=== PATIENT | male | born 2005 | race Two or more races ===

== ENCOUNTER 2024-10-28 23:54 | Inpatient (IN) | payer OTHER ==
[~2024-10-28] VITALS: Ht 175.3 cm; Wt 72.7 kg
--- NOTE | 2024-10-29 00:23 | ED.PDOC ---
History of Present Illness HPI Comments 19-year-old male came to ER for vomiting blood. Patient states he has been having throat pain for a week, associated with nausea and vomiting today. Patient states he vomited approximately 1 cup of dark red blood mixed with vomit . Denies any changes in bowel habits or black/bloody stool. He denies fever, sick contacts or urinary symptoms. Chief Complaint: Throat pain Time Seen by MD: 00:23 Reviewed Notes: Nurses Notes Allergies: Coded Allergies: No Known Drug Allergy (Verified Allergy, Unknown, 10/29/24) Information Source: Patient Mode of Arrival: Ambulatory Severity: Moderate Timing: Hours Duration: Intermittent Past Medical History PAST MEDICAL HISTORY: Denies Surgical History: Denies all surgeries Family History Family History: Reviewed,noncontributory to illness Social History Smoker: Non-Smoker Alcohol: Denies ETOH Use Drugs: Denies Drug Use Lives In: Home Constitutional: denies: chills, diaphoresis, fatigue, fever, malaise, sweats, weakness, others EENTM: reports: throat pain; denies: blurred vision, double vision, ear bleeding, ear discharge, ear drainage, ear pain, ear ringing, eye pain, eye redness, hearing loss, mouth pain, mouth swelling, nasal discharge, nose bleeding, nose congestion, nose pain, photophobia, tearing, throat swelling, voice changes, others Respiratory: denies: cough, hemoptysis, orthopnea, SOB at rest, shortness of breath, SOB with excertion, stridor, wheezing, others Cardiovascular: denies: chest pain, dizzy spells, diaphoresis, Dyspnea on exertion, edema, irregular heart beat, left arm pain, lightheadedness, palpitations, PND, syncope, others Gastrointestinal: reports: abdominal pain, hematemesis; denies: abdomen distended, blood streaked bowels, constipated, diarrhea, dysphagia, difficulty swallowing, melena, nausea, poor appetite, poor fluid intake, rectal bleeding, rectal pain, vomiting, others Genitourinary: denies: burning, dysuria, flank pain, frequency, hematuria, incontinence, penile discharge, penile sore, pain, testicle pain, testicle swelling, urgency, others Neurological: denies: dizziness, fainting, headache, left sided numbness, left sided weakness, numbness, paresthesia, pre-existing deficit, right sided numbness, right sided weakness, seizure, speech problems, tingling, tremors, weakness, others Musculoskeletal: reports: back pain; denies: gout, joint pain, joint swelling, muscle pain, muscle stiffness, neck pain, others Integumetry: denies: bruises, change in color, change in hair/nails, dryness, laceration, lesions, lumps, rash, wounds, others Allergic/Immunocompromised: denies: Difficulty Healing, Frequent Infections, Hives, Itching, others Hematologic/Lymphatic: denies: anemia, blood clots, easy bleeding, easy bruising, swollen glands, others Endocrine: denies: excessive hunger, excessive sweating, excessive thirst, excessive urination, flushing, intolerance to cold, intolerance to heat, unexplained weight gain, unexplained weight loss, others Psychiatric: denies: anxiety, bipolar disorder, depression, hopeless, panic disorder, schizophrenia, sleepless, suicidal, others Physical Exam General Appearance: Mild Distress (Tearful) HEENT: Pharynx Normal, Other (Moist mucous membranes) Neck: Full Range of Motion, Normal Inspection Respiratory: Lungs Clear, No Accessory Muscle Use, No Respiratory Distress, Normal Breath Sounds Cardiovascular: No Edema, No JVD, Regular Rate/Rhythm Breast Exam: Deferred Gastrointestinal: Soft, Tenderness (upper abdominal) Genitalia: Deferred Pelvic: Deferred Rectal: Deferred Extremities: Normal inspection, Normal range of motion, Non-tender, No pedal edema Neurologic: Alert (Oriented x4), Normal Affect, Normal Mood, Other (Ambulatory) Cerebellar Function: NOT DONE Reflexes: NOT DONE Skin: Dry, Normal Color, Warm Lymphatic: NOT DONE Was a procedure done? Was a procedure done?: No Differential Dx Considerations may include: Gastritis, PUD, gastroenteritis, esophageal varices, anemia, coagulopathy, among other X-Ray, Labs, Meds, VS Vital Signs Date Time Temp Pulse Resp B/P (MAP) Pulse Ox O2 Delivery O2 Flow Rate FiO2 10/29/24 00:34 99.2 106 20 142/104 (117) 97 99.2 Lab Test 10/29/24 00:20 10/29/24 00:18 Range/Units Urine Color Yellow Yellow Urine Clarity Clear Clear Urine pH 5.5 5.0-9.0 Urine Specific [place] 1.037 H 1.001-1.035 Urine Protein Trace H Negative Urine Ketones 1+ H Negative Urine Blood Negative Negative /uL Urine Nitrite Negative Negative Urine Bilirubin Negative Negative Urine Urobilinogen 2 H Negative mg/dL Urine Leukocyte Esterase Negative Negative /uL Urine RBC 1 0 - 3 /hpf Urine Microscopic WBC 1 0-3 /HPF Urine Squamous Epithelial Cells None seen <5 /hpf Urine Bacteria None seen None Seen /hpf Urine Mucus Few None Seen Urine Glucose Normal Normal mg/dL White Blood Count 4.9 4.4-10.8 10^3/uL Red Blood Count 5.90 4.5-5.90 10^6/uL Hemoglobin 17.0 13.5-17.5 g/dL Hematocrit 49.1 41.0-53.0 % Mean Corpuscular Volume 83.1 80.0-100.0 fL Mean Corpuscular Hemoglobin 28.8 28.0-32.0 pg Mean Corpuscular Hemoglobin Concent 34.6 32.0-36.0 g/dL Red Cell Distribution Width 13.1 11.8-14.3 % Platelet Count 236 140-450 10^3/uL Mean Platelet Volume 7.9 6.9-10.8 fL Neutrophils (%) (Auto) 71.7 37.0-80.0 % Lymphocytes (%) (Auto) 20.6 10.0-50.0 % Monocytes (%) (Auto) 6.7 0.0-12.0 % Eosinophils (%) (Auto) 0.7 0.0-7.0 % Basophils (%) (Auto) 0.3 0.0-2.0 % Neutrophils # (Auto) 3.5 1.6-8.6 10 ^3/uL Lymphocytes # (Auto) 1.0 0.4-5.4 10 ^3/uL Monocytes # (Auto) 0.3 0-1.3 10 ^3/uL Eosinophils # (Auto) 0 0-0.8 10 ^3/uL Basophils # (Auto) 0 0-0.2 10 ^3/uL Nucleated Red Blood Cells 0.2 % Prothrombin Time 10.9 9.3-11.8 sec Prothrombin Time INR 1.03 0.9-1.15 Activated Partial Thromboplast Time 29.7 24.5-34.5 SEC Sodium Level 143 136-145 mmol/L Potassium Level 4.3 3.5-5.1 mmol/L Chloride Level 108 H 98-107 mmol/L Carbon Dioxide Level 24 20-31 mmol/L Anion Gap 11 5-15 Blood Urea Nitrogen 13 9-23 mg/dL Creatinine 1.12 0.700-1.30 mg/dL Glomerular Filtration Rate Calc 96 >90 mL/min BUN/Creatinine Ratio 11.6 10.0-20.0 Serum Glucose 100 74-106 mg/dL Calcium Level 9.8 8.7-10.4 mg/dL Total Bilirubin 1.1 H 0.2-1.0 mg/dL Aspartate Amino Transferase (AST) 21 <34 U/L Alanine Aminotransferase (ALT) 14 7-40 U/L Alkaline Phosphatase 82 46-116 U/L Total Protein 7.7 5.7-8.2 g/dL Albumin 5.4 H 3.2-4.8 g/dL Current Medications Medications (Trade) Dose Ordered Sig/Mateo Route Start Time Stop Time Status Last Admin Sodium Chloride 1,000 ml @ 1,000 mls/hr Q1H ONCE IV 10/29/24 00:30 10/29/24 01:29 DC 10/29/24 00:30 Ondansetron HCl (Zofran) 4 mg ONCE ONCE IV 10/29/24 00:30 10/29/24 00:31 DC 10/29/24 01:09 Pantoprazole Sodium (Protonix) 40 mg ONCE ONCE IV 10/29/24 00:30 10/29/24 00:31 DC 10/29/24 01:09 PROCEDURE(s): ABPL - CT AB PEL WO CON-NO ORAL OR IV REASON: hematemesis ORDER NUMBER(s): [id number], ACCESSION NUMBER(s): [id number] CT SCAN ABDOMEN AND PELVIS WITHOUT CONTRAST CLINICAL HISTORY: hematemesis TECHNIQUE: Helical axial images are obtained from the lung bases through the pelvis without oral contrast. No intravenous contrast was administered. Coronal and sagittal reformatted images were generated from thin section reconstructions. One or more of the following radiation dose reduction techniques were used for this examination: automated exposure control, adjustment of the mA and/or kV according to patient size, use of iterative reconstruction technique. COMPARISON: None FINDINGS: LOWER THORAX: Imaged lung bases are grossly clear. ABDOMEN AND PELVIS: Evaluation of visceral and vascular structures is limited due to lack of contrast administration. As visualized, the unenhanced liver, spleen, pancreas and adrenals appear grossly unremarkable. No sizable, radiopaque cholelithiasis or biliary ductal dilatation. No hydroureteronephrosis or sizable, obstructing urinary tract calculi identif ied. No evidence of abdominal aortic aneurysm. No evidence of bowel obstruction. Normal caliber appendix. No free intraperit gee air or fluid identified. Thickening versus underdistention of the transverse and distal colon. No sizable bladder calculus. No destructive osseous lesions identified. IMPRESSION: Thickening versus underdistention of the transverse and distal colon. Correlate for possible colitis. Otherwise no bowel obstruction, free intraperitoneal air/fluid or sizable inflammatory collections identified on this noncontrast examination. HS:Y X-Ray, Labs, Meds, VS Comment 19-year-old male with no significant past medical history presenting complaining of nausea, vomiting, hematemesis and sore throat Vitals remarkable for heart rate 106, BP 142/104 Exam remarkable for tearfulness and anxious appearance and upper abdominal tenderness to palpation. No oropharyngeal abnormality noted. Rhythm strip independently interpreted by me: Sinus tach, rate 106, no ectopy. CT abdomen and pelvis IMPRESSION: Thickening versus underdistention of the transverse and distal colon. Correlate for possible colitis. Otherwise no bowel obstruction, free intraperitoneal air/fluid or sizable inflammatory collections identified on this noncontrast examination. CBC normal , CMP unremarkable, coagulation panel normal Patient treated with the following in the ED: 1 L 0.9 normal saline IV bolus, Zofran 4 mg IV, Protonix 40 mg IV, Zosyn 4.5 g IV. On re-evaluation, patient states symptoms have improved. Vitals were stable. Plan is to admit the patient for IV antibiotics and GI evaluation. Time of 1ST Reevaluation: 00:18 Reevaluation 1ST: Unchanged Patient Education/Counseling: Diagnosis, Treatment Family Education/Counseling: No Family Present SEPSIS Sepsis Screen Physician Orders Ct Ab Pel Wo Con-No Oral Or Iv (10/29/24 00:27) Zosyn Extended Infusion (10/29/24 02:00) Vital Signs Date Time Temp Pulse Resp B/P (MAP) Pulse Ox O2 Delivery O2 Flow Rate FiO2 10/29/24 00:34 99.2 106 20 142/104 (117) 97 99.2 Laboratory Tests Test 10/29/24 00:18 White Blood Count 4.9 10^3/uL (4.4-10.8) Medications Medications Dose Ordered Sig/Mateo Route Start Time Stop Time Status Last Admin Dose Admin Ondansetron HCl 4 mg ONCE ONCE IV 10/29/24 00:30 10/29/24 00:31 DC 10/29/24 01:09 Pantoprazole Sodium 40 mg ONCE ONCE IV 10/29/24 00:30 10/29/24 00:31 DC 10/29/24 01:09 Sodium Chloride 1,000 ml @ 1,000 mls/hr Q1H ONCE IV 10/29/24 00:30 10/29/24 01:29 DC 10/29/24 00:30 Departure 1 Departure Time of Disposition: 01:49 Impression: Primary Impression: Hematemesis Qualified Codes: K92.0 - Hematemesis Additional Impression: Colitis Disposition: ADMITTED INPATIENT Admit to: Med Surg Condition: Guarded Critical Care Note Critical Care Time?: No Stability Stability form required: No Heart Score Heart Score: Heart Score Response (Comments) Value History N/A 0 EKG N/A 0 Age N/A 0 Risk Factors N/A 0 Troponin N/A 0 Total 0 I personally scribed for LIBIA CHRISTIANSON MD ([facility]) on 10/29/24 at 00:23. Electronically submitted by Santi Perry ([facility]). LIBIA CHRISTIANSON MD Oct 29, 2024 00:23
[2024-10-29] MEDS: SODIUM CHLORIDE 0.9% 1,000 ML IV ONE (00:30)
[2024-10-29 00:42] LABS: Basophils # (auto) 0 10 ^3/uL (0-0.2); Basophils % (auto) 0.3 % (0.0-2.0); Eosinophils # (auto) 0 10 ^3/uL (0-0.8); Eosinophils % (auto) 0.7 % (0.0-7.0); Hematocrit 49.1 % (41.0-53.0); Lymphocytes % (auto) 20.6 % (10.0-50.0); Mean Corpuscular Hemoglobin 28.8 pg (28.0-32.0); Mean Corpuscular Hgb Conc. 34.6 g/dL (32.0-36.0); Mean Corpuscular Volume 83.1 fL (80.0-100.0); Monocytes # (auto) 0.3 10 ^3/uL (0-1.3); Monocytes % (auto) 6.7 % (0.0-12.0); Neutrophils # (auto) 3.5 10 ^3/uL (1.6-8.6); Neutrophils % (auto) 71.7 % (37.0-80.0); Nucleated Red Blood Cells % 0.2 %; Platelet Count (auto) 236 10^3/uL (140-450); Red Cell Distribution Width 13.1 % (11.8-14.3); White Blood Cell 4.9 10^3/uL (4.4-10.8)
[2024-10-29 00:48] LABS: Urine Bacteria None Seen /hpf (None Seen)
[2024-10-29 00:56] LABS: INR 1.03 (0.9-1.15); Partial Thromboplastin Time 29.7 SEC (24.5-34.5); Prothrombin Time 10.9 sec (9.3-11.8)
[2024-10-29 00:57] LABS: Alanine Aminotransferase 14 U/L (7-40); Alkaline Phosphatase 82 U/L (46-116); Anion Gap 11 (5-15); Aspartate Aminotransferase 21 U/L (<34); BUN/Creatinine Ratio 11.6 (10.0-20.0); Bilirubin, Total 1.1 mg/dL (0.2-1.0); Blood Urea Nitrogen 13 mg/dL (9-23); Calcium 9.8 mg/dL (8.7-10.4); Carbon Dioxide 24 mmol/L (20-31); Glucose 100 mg/dL (74-106); Potassium 4.3 mmol/L (3.5-5.1); Sodium 143 mmol/L (136-145); Total Protein 7.7 g/dL (5.7-8.2)
[2024-10-29 01:03] LABS: Urine Blood Negative /uL (Negative); Urine Clarity Clear (Clear); Urine Color Yellow (Yellow); Urine Mucus FEW (None Seen); Urine Protein, UAD TRACE (Negative); Urine Specific Gravity 1.037 (1.001-1.035); Urine Squamous Epithelial Cell None Seen /hpf (<5); Urine Urobilinogen 2 mg/dL (Negative); Urine WBC 1 /HPF (0-3); Urine pH 5.5 (5.0-9.0)
[2024-10-29 01:03] LABS: Albumin 5.4 g/dL (3.2-4.8); Chloride 108 mmol/L (98-107)
[2024-10-29] MEDS: ONDANSETRON HCL 4 MG/2 ML VIAL IV ONE (01:09)
[2024-10-29] MEDS: PANTOPRAZOLE 40 MG/10 ML VIAL INJ IV ONE (01:09)
--- NOTE | 2024-10-29 01:34 | DVH ---
CT SCAN ABDOMEN AND PELVIS WITHOUT CONTRAST CLINICAL HISTORY: hematemesis TECHNIQUE: Helical axial images are obtained from the lung bases through the pelvis without oral cont rast. No intravenous contrast was administered. Coronal and sagittal reformatted images were generate d from thin section reconstructions. One or more of the following radiation dose reduction techniques were used for this examination: automated exposure control, adjustment of the mA and/or kV according to patient size, use of iterative reconstruction technique. COMPARISON: None FINDINGS: LOWER THORAX: Imaged lung bases are grossly clear. ABDOMEN AND PELVIS: Evaluation of visceral and vascular structures is limited due to lack of contrast administration. As visualized, the unenhanced liver, spleen, pancreas and adrenals appear grossly unremarkable. No si zable, radiopaque cholelithiasis or biliary ductal dilatation. No hydroureteronephrosis or sizable, obstructing urinary tract calculi identified. No evidence of abdominal aortic aneurysm. No evidence of bowel obstruction. Normal caliber appendix. No free intraperitoneal air or fluid vanessa ntified. Thickening versus underdistention of the transverse and distal colon. No sizable bladder calculus. No destructive osseous lesions identified. IMPRESSION: Thickening versus underdistention of the transverse and distal colon. Correlate for possible colitis. Otherwise no bowel obstruction, free intraperitoneal air/fluid or sizable inflammatory collections id entified on this noncontrast examination. HS:Y
[2024-10-29] MEDS: PIPERACILLIN-TAZO 4.5GM 100 ML IV ONE (02:03)
[2024-10-29] MEDS ORDERED: PIPERACILLIN-TAZOB 3.375GM 100 ML IV ONE (03:15)
[2024-10-29] MEDS ORDERED: NITROGLYCERIN 0.4 MG SL TAB SL PRN (03:15)
[2024-10-29] MEDS ORDERED: ONDANSETRON HCL 4 MG/2 ML VIAL IV PRN (03:15)
[2024-10-29] MEDS: SODIUM CHLORIDE 0.9% 1,000 ML IV SCH (03:15)
[2024-10-29] MEDS ORDERED: MORPHINE SULFATE INJ 2 MG/ml SYRG IV PRN ×2 (03:15)
--- NOTE | 2024-10-29 03:54 | DVHHPRES ---
History of Present Illness Resident Creating Document: HELIO NEWELL RESIDENT History of Present Illness Mr. Gutierrez, a 19-year-old male with no known drug allergies presented to the ER ambulatory with complaints of throat pain for one week, now associated with nausea and a single episode of hematemesis estimated at approximately one cup of dark red blood mixed with vomit. He denies melena, hematochezia, fever, chills, sick contacts, or urinary symptoms. Past Medical History None Past Surgical History None Family History: None, Other (No significant history of GI malignancy) Smoke: No ALCOHOL: none Drugs: None Lives: with Family Domestic Violence: Neg Review of Systems Constitutional: No: Fever, Chills, Sweats, Weakness, Malaise, Other Eyes: No: Pain, Vision change, Conjunctivae inflammation, Eyelid inflammation, Other, Redness ENT: Throat pain; No: Ear pain, Ear discharge, Nose pain, Nose discharge, Nose congestion, Mouth pain, Mouth swelling, Throat swelling, Other Respiratory: No: Cough, Dry, Shortness of breath, SOB with excertion, Wheezing, Hemoptysis, Pleuritic Pain, Sputum, Wheezing, Other Cardiovascular: No: Chest Pain, Palpitations, Orthopnea, Paroxysmal Noc. Dyspnea, Edema, Lt Headedness, Other Gastrointestinal: Nausea, Vomiting, Hematochezia; No: Abdominal Pain, Diarrhea, Constipation, Melena, Other Genitourinary: No Dysuria, No Frequency, No Incontinence, No Hematuria, No Retention, No Other Musculoskeletal: No: other, neck pain, shoulder pain, arm pain, back pain, hand pain, leg pain, foot pain Skin: No: Rash, Lesions, Jaundice, Bruising, Other Neurological: No: Weakness, Numbness, Incoordination, Change in speech, Confusion, Seizures, Other Allergies: Coded Allergies: No Known Drug Allergy (Verified Allergy, Unknown, 10/29/24) Medications Current Medications Medications Dose Ordered Sig/Mateo Route Start Time Stop Time Status Last Admin Dose Admin Sodium Chloride 1,000 ml @ 120 mls/hr Q8H20M IV 10/29/24 03:15 Ondansetron HCl 4 mg Q4HP PRN IV 10/29/24 03:15 Morphine Sulfate 2 mg Q4HPRN PRN IV 10/29/24 03:15 Nitroglycerin 0.4 mg Q5MINP PRN SL 10/29/24 03:15 Morphine Sulfate 2 mg Q30M PRN IV 10/29/24 03:15 Pantoprazole Sodium 40 mg BID IV 10/29/24 03:30 Exam Vital Signs Vital Signs Date Time Temp Pulse Resp B/P (MAP) Pulse Ox O2 Delivery O2 Flow Rate FiO2 10/29/24 00:34 99.2 106 20 142/104 (117) 97 99.2 General Appearance: Alert, Oriented X3, Cooperative, moderate distress HEENT: Atraumatic, PERRLA, EOMI, Mucous membr. moist/pink, Other (Dried blood) Respiratory: Clear to auscultation, Normal air movement, Other (Breathing comfortably in the room air) Cardiovascular: Regular rate, Normal S1, Normal S2, No murmurs (Mild tachycardia), Other Abdominal: Normal bowel sounds, Soft, No tenderness, No hepatospenomegaly, No masses, Other Extremities: No clubbing, No cyanosis, No edema, Normal pulses, No tenderness/swelling Skin: No rashes, No breakdown, No significant lesion Neuro: Normal gait, Normal speech, Strength at 5/5 X4 ext, Normal tone, Sensation intact, Cranial nerves 3-12 NL, Reflexes 2+, Other (Unremarkable) Psych/Mental Status: Mental status NL, Mood NL, Other Labs/Xrays Labs Test 10/29/24 00:20 10/29/24 00:18 Range/Units Urine Color Yellow Yellow Urine Clarity Clear Clear Urine pH 5.5 5.0-9.0 Urine Specific [place] 1.037 H 1.001-1.035 Urine Protein Trace H Negative Urine Ketones 1+ H Negative Urine Blood Negative Negative /uL Urine Nitrite Negative Negative Urine Bilirubin Negative Negative Urine Urobilinogen 2 H Negative mg/dL Urine Leukocyte Esterase Negative Negative /uL Urine RBC 1 0 - 3 /hpf Urine Microscopic WBC 1 0-3 /HPF Urine Squamous Epithelial Cells None seen <5 /hpf Urine Bacteria None seen None Seen /hpf Urine Mucus Few None Seen Urine Glucose Normal Normal mg/dL White Blood Count 4.9 4.4-10.8 10^3/uL Red Blood Count 5.90 4.5-5.90 10^6/uL Hemoglobin 17.0 13.5-17.5 g/dL Hematocrit 49.1 41.0-53.0 % Mean Corpuscular Volume 83.1 80.0-100.0 fL Mean Corpuscular Hemoglobin 28.8 28.0-32.0 pg Mean Corpuscular Hemoglobin Concent 34.6 32.0-36.0 g/dL Red Cell Distribution Width 13.1 11.8-14.3 % Platelet Count 236 140-450 10^3/uL Mean Platelet Volume 7.9 6.9-10.8 fL Neutrophils (%) (Auto) 71.7 37.0-80.0 % Lymphocytes (%) (Auto) 20.6 10.0-50.0 % Monocytes (%) (Auto) 6.7 0.0-12.0 % Eosinophils (%) (Auto) 0.7 0.0-7.0 % Basophils (%) (Auto) 0.3 0.0-2.0 % Neutrophils # (Auto) 3.5 1.6-8.6 10 ^3/uL Lymphocytes # (Auto) 1.0 0.4-5.4 10 ^3/uL Monocytes # (Auto) 0.3 0-1.3 10 ^3/uL Eosinophils # (Auto) 0 0-0.8 10 ^3/uL Basophils # (Auto) 0 0-0.2 10 ^3/uL Nucleated Red Blood Cells 0.2 % Prothrombin Time 10.9 9.3-11.8 sec Prothrombin Time INR 1.03 0.9-1.15 Activated Partial Thromboplast Time 29.7 24.5-34.5 SEC Sodium Level 143 136-145 mmol/L Potassium Level 4.3 3.5-5.1 mmol/L Chloride Level 108 H 98-107 mmol/L Carbon Dioxide Level 24 20-31 mmol/L Anion Gap 11 5-15 Blood Urea Nitrogen 13 9-23 mg/dL Creatinine 1.12 0.700-1.30 mg/dL Glomerular Filtration Rate Calc 96 >90 mL/min BUN/Creatinine Ratio 11.6 10.0-20.0 Serum Glucose 100 74-106 mg/dL Calcium Level 9.8 8.7-10.4 mg/dL Total Bilirubin 1.1 H 0.2-1.0 mg/dL Aspartate Amino Transferase (AST) 21 <34 U/L Alanine Aminotransferase (ALT) 14 7-40 U/L Alkaline Phosphatase 82 46-116 U/L Total Protein 7.7 5.7-8.2 g/dL Albumin 5.4 H 3.2-4.8 g/dL Assessment/Plan Assessment/Plan #acute onset, persistent throat pain for week: Check viral panel and strep throat, two-view chest x-ray. UDS, alcohol level to check. #Possible gastroenteritis: In acute setting in a very young otherwise healthy gentleman. Although hematemesis not supportive. Mild weight loss: rule out HIV. #Likely transverse colitis: Noted in noncontrast abdomen CT. Gram-negative/ anaerobic/ inflammatory causes. Thickening versus under distention of the transverse and distal colon ; Stool workup sent, check blood culture. Otherwise no bowel obstruction, free intraperitoneal air/fluid or sizable inflammatory collections identified on CT. IV Zosyn monotherapy. IV fluid to continue. Other intra-abdominal workup and lactate to check. #Mild Hyperbilirubinemia: follow CMP serially. Abdominal examination unremarkable. if all secondary causes ruled out possible underlying Gilbert's syndrome, unlikely clinically important. #Acute onset hematemesis: H&H stable, INR PTT /PT WNL platelet levels stable. Avoid anticoagulation, IV PPI b.i.d. avoid NSAIDs aspirin. Bowel rest, IV fluid, NPO. GI consult done. avoid corrosive/ caustic/ highly acidic food. Serial abdominal check. As needed Zofran. H&H stable, transfusion threshold <7. #Mild dehydration: IV fluid replenished to continue, correct electrolytes avoid further dehydration with seizing further diarrhea or vomiting, tachycardia could be related to this, close monitoring in telemetry #poor medical follow up: Advice to follow up with PCP for close health monito ring #Inflammatory bowel disease: likely in such unusual presentation, basic panel sent. further testing as per GI discretion. PCP: Not established, advised to follow up with the [facility] discharge Clinic for preventative health field care manager Relevant To Admission: GI consult in-hospital for acute GI bleed Case discussed with Dr. Whitley. Code Status: Full Code. Goals of care and care plan discussion needed total 33 minutes bedside. Patient is agreeable to the hospital admission and further care. Plan discussed with: Patient My Orders Orders - HELIO NEWELL RESIDENT Procedure Category Date Status Time Admit ADMIT 10/29/24 Transmitted 03:12 Allergies CHARLIE 10/29/24 In Process 03:12 Code Status CODE 10/29/24 Transmitted 03:12 Sodium Chloride 0.9% PHA 10/29/24 In Process 03:15 Oxygen Per Hour RT 10/29/24 Transmitted 03:12 Ondansetron Hcl PHA 10/29/24 In Process (Zofran) 03:15 Complete Blood Count LAB 10/30/24 Verified 04:00 Comprehensive LAB 10/30/24 Verified Metabolic Panel 04:00 Npo (Nothing By DIET 10/29/24 Transmitted Mouth) Diet Breakfast Condition: Fair CHARLIE 10/29/24 In Process 03:12 Bedside Commode CHARLIE 10/29/24 In Process 03:12 Morphine Sulfate PHA 10/29/24 In Process Injection 03:15 Sequential CHARLIE 10/29/24 In Process Compression Device Nitroglycerin PHA 10/29/24 In Process Sublingual (Ntrostat 03:15 Morphine Sulfate PHA 10/29/24 In Process Injection 03:15 Oxygen By Nasal RT 10/29/24 Transmitted Cannula 03:12 Stat Ekg For Chest CHARLIE 10/29/24 In Process Pain 03:12 Notify Md Of Changes CHARLIE 10/29/24 In Process From Base 03:12 Biodiesel Product Manager For CHARLIE 10/29/24 In Process 24 Hours 03:12 Emergency Dysrhythmia CHARLIE 10/29/24 In Process Protocol 03:12 Rhythm Strips Once CHARLIE 10/29/24 In Process Every Shift 03:12 Clostridium Difficile [facility] 10/29/24 Logged Toxin 03:16 Ova & Parasite Exam [facility] 10/29/24 Logged 03:16 Stool Bacterial [facility] 10/29/24 Logged Culture 03:16 Stool Occult Blood LAB 10/29/24 Logged 03:16 Gram Stain [facility] 10/29/24 Logged 03:16 Stool Wbc LAB 10/29/24 Logged 03:16 Blood Culture [facility] 10/29/24 Logged 03:17 Pantoprazole PHA 10/29/24 In Process (Protonix) 03:30 Drug Screen LAB 10/29/24 Logged 03:18 Blood Alcohol LAB 10/29/24 Logged 03:18 C-Reactive Protein LAB 10/29/24 Logged 03:18 Erythrocyte LAB 10/29/24 Logged Sedimentation Rate 03:18 Anca Panel LAB 10/29/24 Logged 03:18 Hemoglobin & LAB 10/29/24 Logged Hematocrit 03:18 D-Dimer LAB 10/29/24 Logged 03:20 Lipase LAB 10/29/24 Logged 03:20 Lactic Acid W/ Reflex LAB 10/29/24 Logged Order 03:20 * Gi D[facility] Operating Room Manager CONS 10/29/24 Transmitted 03:21 Hiv 1&2 Antibody LAB 10/29/24 Logged 03:21 Chest Portable XY 10/29/24 Logged 03:34 Pls Schedule Appt MEMBERSERV 10/29/24 Transmitted With Dvmgpcp 03:35 Covid19 Antigen Hermila LAB 10/29/24 Logged Rapid Influenza A&B LAB 10/29/24 Logged 03:35 Rapid Strep Screen - LAB 10/29/24 Logged Throat 03:35 Piperacillin-Tazob PHA 10/29/24 Logged 3.375gm (Zosyn 3.375g 10:00 Date of Service: Oct 29, 2024 Billing Provider: JUNE WHITLEY MD Common Visit Codes: [id number] INP/OBS CARE (HIGH) Secondary Visit Codes: [id number] CARE PLAN 30 MINUTES OSIRISHELIO RESIDENT Oct 29, 2024 03:53
[2024-10-29 04:00] VITALS: PULSE 59; RESP 14; O2SAT 97
[2024-10-29] MEDS: PANTOPRAZOLE 40 MG/10 ML VIAL INJ IV SCH (04:08)
[2024-10-29 04:34] LABS: Hematocrit 43.3 % (41.0-53.0)
[2024-10-29 04:50] LABS: CRP High Sensitivity 0.04 mg/dL (<1.0)
[2024-10-29 04:51] LABS: Blood Alcohol < 3.0 mg/dL (<10)
--- NOTE | 2024-10-29 05:12 | DVH ---
CHEST RADIOGRAPH Indication: rule out gross chest pathology Technique: Single frontal view of the chest was obtained COMPARISON: None FINDINGS: Lines and Tubes: None Lungs: Clear Pleura: No effusion. No pneumothorax. Cardiomediastinal contours: Unremarkable Bones: Unremarkable IMPRESSION: 1. No acute disease.
[2024-10-29 05:31] LABS: Erythrocyte Sedimentation Rate 1 mm/hr (0-20)
[2024-10-29 05:39] LABS: Cannabinoid Screen, Urine Pos (NEGATIVE)
[2024-10-29 05:41] LABS: Amphetamine Screen, Urine Neg (NEGATIVE); Barbiturate Scree,Urine Neg (NEGATIVE); Cocaine Screen, Urine Neg (NEGATIVE); Opiate Scree,Urine Neg (NEGATIVE); Phencyclidine Screen, Urine Neg (NEGATIVE)
[2024-10-29 06:02] LABS: COVID19 ANTIGEN SOFIA FIA NEGATIVE (NEGATIVE); Rapid Influenza A Negative (Negative); Rapid Influenza B Negative (Negative)
[2024-10-29 06:53] LABS: Benzodiazephine Screen, Urine Neg (NEGATIVE)
[2024-10-29 07:30] VITALS: PULSE 82; RESP 15; O2SAT 95
[2024-10-29 07:55] LABS: Rapid Strep A Screen-Throat Negative
[2024-10-29] MEDS: PIPERACILLIN-TAZOB 3.375GM 100 ML IV SCH (10:09)
--- NOTE | 2024-10-29 11:38 | DVHCONRES ---
Date Seen: Oct 29, 2024 Resident Creating Document: NATALIE RANGEL RESIDENT Referring Physician Jhoan Dillon Residesnt Physician History of Present Illness Patient is 19 years old male with no significant past medical history came with a complaint of hematemesis and nausea. As per patient he had 2 days of blood vomiting yesterday. Initial lab workup revealed hemoglobin 17.0, serum bilirubin 1.1, CT abdomen and pelvis revealed Thickening versus underdistention of the transverse and distal colon. Correlate for possible colitis. PMH-none PSH-none Past Surgical History-None Family history-nonsignificant Personal and social history-smokes marijuana Patient is seen today at bedside Patient was referred by Arlyn Aj Patient reports feeling better today, no nausea or vomiting Today no bowel movement so far No acute abdominal pain H&H stable Allergies: Coded Allergies: No Known Drug Allergy (Verified Allergy, Unknown, 10/29/24) Current Medications Current Medications Medications (Trade) Dose Ordered Sig/Mateo Route PRN Reason Start Time Stop Time Status Last Admin Sodium Chloride 1,000 ml @ 120 mls/hr Q8H20M IV 10/29/24 03:15 Ondansetron HCl (Zofran) 4 mg Q4HP PRN IV NAUSEA / VOMITING 10/29/24 03:15 Morphine Sulfate 2 mg Q4HPRN PRN IV SEVERE PAIN (7-10 PAIN SCALE) 10/29/24 03:15 Nitroglycerin (Ntrostat Sublingual) 0.4 mg Q5MINP PRN SL FOR CHEST PAIN 10/29/24 03:15 Morphine Sulfate 2 mg Q30M PRN IV FOR CHEST PAIN 10/29/24 03:15 Pantoprazole Sodium (Protonix) 40 mg BID IV 10/29/24 03:30 10/29/24 10:09 Piperacillin Sod/ Tazobactam Sod 100 ml @ 25 mls/hr Q8H IV 10/29/24 10:00 10/29/24 10:09 Vital Signs Vital Signs Date Time Temp Pulse Resp B/P (MAP) Pulse Ox O2 Delivery O2 Flow Rate FiO2 10/29/24 07:30 82 15 95 Room Air* 0 21 10/29/24 07:30 98.0 122/62 (82) 98.0 Physical Exam General examination- HEENT- PEERLA, no acute nasal discharge Cardiovascular- S1-S2 audible, rate and rhythm regular, no murmur Respiratory- CTAB, no wheeze or rhonchi Gastrointestinal-nontender, bowel sound+. Nondistended Musculoskeletal-no acute joint swelling or tenderness or redness Lower extremity- Neurological- cranial nerves intact, no acute dysarthria or dysphagia Psychiatry- denies depression or SI or HI Skin- no acute rash or purpura Labs/Diagnostic Data Labs Test 10/29/24 04:50 10/29/24 04:31 10/29/24 03:37 10/29/24 00:28 Range/Units Group A Streptococcus Rapid Negative Influenza Type A Antigen Negative Negative Influenza Type B Antigen Negative Negative SARS-CoV-2 Antigen (Rapid) Negative NEGATIVE Hemoglobin 15.0 13.5-17.5 g/dL Hematocrit 43.3 # 41.0-53.0 % Erythrocyte Sedimentation Rate 1 0-20 mm/hr D-Dimer, Quantitative < 0.19 0.0-0.49 mg/L FEU Lactic Acid Level 1.2 0.4-2.0 mmol/L C-Reactive Protein High Sensitivity 0.04 <1.0 mg/dL Lipase 33 12-53 U/L Plasma/Serum Blood Alcohol < 3.0 <10 mg/dL HIV (1&2) Antibody Negative Negative Test 10/29/24 00:20 10/29/24 00:18 Range/Units Urine Color Yellow Yellow Urine Clarity Clear Clear Urine pH 5.5 5.0-9.0 Urine Specific [place] 1.037 H 1.001-1.035 Urine Protein Trace H Negative Urine Ketones 1+ H Negative Urine Blood Negative Negative /uL Urine Nitrite Negative Negative Urine Bilirubin Negative Negative Urine Urobilinogen 2 H Negative mg/dL Urine Leukocyte Esterase Negative Negative /uL Urine RBC 1 0 - 3 /hpf Urine Microscopic WBC 1 0-3 /HPF Urine Squamous Epithelial Cells None seen <5 /hpf Urine Bacteria None seen None Seen /hpf Urine Mucus Few None Seen Urine Glucose Normal Normal mg/dL Urine Opiates Screen Neg NEGATIVE Urine Fentanyl Screen Neg NEGATIVE Urine Barbiturates Screen Neg NEGATIVE Urine Phencyclidine Screen Neg NEGATIVE Urine Amphetamines Screen Neg NEGATIVE Urine Benzodiazepines Screen Neg NEGATIVE Urine Cocaine Screen Neg NEGATIVE Urine Cannabinoids Screen Pos NEGATIVE White Blood Count 4.9 4.4-10.8 10^3/uL Red Blood Count 5.90 4.5-5.90 10^6/uL Mean Corpuscular Volume 83.1 80.0-100.0 fL Mean Corpuscular Hemoglobin 28.8 28.0-32.0 pg Mean Corpuscular Hemoglobin Concent 34.6 32.0-36.0 g/dL Red Cell Distribution Width 13.1 11.8-14.3 % Platelet Count 236 140-450 10^3/uL Mean Platelet Volume 7.9 6.9-10.8 fL Neutrophils (%) (Auto) 71.7 37.0-80.0 % Lymphocytes (%) (Auto) 20.6 10.0-50.0 % Monocytes (%) (Auto) 6.7 0.0-12.0 % Eosinophils (%) (Auto) 0.7 0.0-7.0 % Basophils (%) (Auto) 0.3 0.0-2.0 % Neutrophils # (Auto) 3.5 1.6-8.6 10 ^3/uL Lymphocytes # (Auto) 1.0 0.4-5.4 10 ^3/uL Monocytes # (Auto) 0.3 0-1.3 10 ^3/uL Eosinophils # (Auto) 0 0-0.8 10 ^3/uL Basophils # (Auto) 0 0-0.2 10 ^3/uL Nucleated Red Blood Cells 0.2 % Prothrombin Time 10.9 9.3-11.8 sec Prothrombin Time INR 1.03 0.9-1.15 Activated Partial Thromboplast Time 29.7 24.5-34.5 SEC Sodium Level 143 136-145 mmol/L Potassium Level 4.3 3.5-5.1 mmol/L Chloride Level 108 H 98-107 mmol/L Carbon Dioxide Level 24 20-31 mmol/L Anion Gap 11 5-15 Blood Urea Nitrogen 13 9-23 mg/dL Creatinine 1.12 0.700-1.30 mg/dL Glomerular Filtration Rate Calc 96 >90 mL/min BUN/Creatinine Ratio 11.6 10.0-20.0 Serum Glucose 100 74-106 mg/dL Calcium Level 9.8 8.7-10.4 mg/dL Total Bilirubin 1.1 H 0.2-1.0 mg/dL Aspartate Amino Transferase (AST) 21 <34 U/L Alanine Aminotransferase (ALT) 14 7-40 U/L Alkaline Phosphatase 82 46-116 U/L Total Protein 7.7 5.7-8.2 g/dL Albumin 5.4 H 3.2-4.8 g/dL Microbiology Date/Time Source Procedure Growth Status 10/29/24 03:16 Stool Ordered Assessment Assessment and plan Hematemesis Acute colitis Intractable nausea and vomiting Patient is seen today at bedside Patient was referred by Arlyn Aj Patient reports feeling better today, no nausea or vomiting Today no bowel movement so far No acute abdominal pain H&H stable Plan Possible endoscopic tomorrow Clear liquid diet Order for stool occult blood Continue pantoprazole and sucralfate as prescribed Continue IV antibiotic Avoid dehydration and constipation Other care as per primary care team Plan discussed with Dr. Aysha Key , nursing staff, Total time spent on patient evaluation, chart review, assessment and plan, discussion discussion >35 minutes Plan discussed with: Patient, Other ( RN) NATALIE RANGEL RESIDENT Oct 29, 2024 11:38
[2024-10-29] MEDS: SUCRALFATE 1 GM/10 ML ORAL SUSP PO SCH (12:48)
--- NOTE | 2024-10-29 15:51 | DVHPN2 ---
Subjective I am assuming the care of the patient from today onwards. Patient has a here for two episodes of hematemesis. Denies any NSAID use denies any alcohol use. Reviewed: Care Plan Changes from previous H/P or p: No Changes Eyes: No Pain, No Vision change, No Conjunctivae inflammation, No Eyelid inflammation, No Other, No Redness ENT: No Ear pain, No Ear discharge, No Nose pain, No Nose discharge, No Nose congestion, No Mouth pain, No Mouth swelling; Throat pain; No Throat swelling, No Other Cardiovascular: No Chest Pain, No Palpitations, No Orthopnea, No Paroxysmal Noc. Dyspnea, No Edema, No Lt Headedness, No Other Respiratory: No Cough, No Dry, No Shortness of breath, No SOB with excertion, No Wheezing, No Hemoptysis, No Pleuritic Pain, No Sputum, No Other Gastrointestinal: Nausea, Vomiting; No Abdominal Pain, No Diarrhea, No Constipation, No Melena; Hematochezia; No Other Genitourinary: No Dysuria, No Frequency, No Incontinence, No Hematuria, No Retention, No Other Musculoskeletal: No other, No neck pain, No shoulder pain, No arm pain, No back pain, No hand pain, No leg pain, No foot pain Skin: No Rash, No Lesions, No Jaundice, No Bruising, No Other Objective Vitals Vital Signs Date Time Temp Pulse Resp B/P (MAP) Pulse Ox O2 Delivery O2 Flow Rate FiO2 10/29/24 15:00 52 17 122/67 (85) 96 10/29/24 07:30 Room Air* 0 21 10/29/24 07:30 98.0 98.0 Exam HEENT pupils are reactive Neck is supple CVS S1-S2 regular rate and rhythm Respiratory bilateral equal breath sounds GI positive bowel sounds Extremities no pedal edema [employer] no motor deficit Medications Current Medications Medications Dose Ordered Sig/Mateo Route Start Time Stop Time Status Last Admin Dose Admin Sodium Chloride 1,000 ml @ 120 mls/hr Q8H20M IV 10/29/24 03:15 10/29/24 11:58 120 MLS/HR Ondansetron HCl 4 mg Q4HP PRN IV 10/29/24 03:15 Morphine Sulfate 2 mg Q4HPRN PRN IV 10/29/24 03:15 Nitroglycerin 0.4 mg Q5MINP PRN SL 10/29/24 03:15 Morphine Sulfate 2 mg Q30M PRN IV 10/29/24 03:15 Pantoprazole Sodium 40 mg BID IV 10/29/24 03:30 10/29/24 10:09 40 MG Piperacillin Sod/ Tazobactam Sod 100 ml @ 25 mls/hr Q8H IV 10/29/24 10:00 10/29/24 10:09 25 MLS/HR Sucralfate 1 gm QID@0600,1130,1700,2200 PO 10/29/24 11:30 Laboratory Results Laboratory Tests 10/29/24 00:18 10/29/24 03:37 Chemistry Test 10/29/24 00:18 Albumin 5.4 g/dL (3.2-4.8) H Calcium Level 9.8 mg/dL (8.7-10.4) Total Protein 7.7 g/dL (5.7-8.2) Coagulation Test 10/29/24 00:18 10/29/24 03:37 Prothrombin Time 10.9 sec (9.3-11.8) Prothrombin Time INR 1.03 (0.9-1.15) Activated Partial Thromboplast Time 29.7 SEC (24.5-34.5) D-Dimer, Quantitative < 0.19 mg/L FEU (0.0-0.49) Lipid panel Test 10/29/24 03:37 Lipase 33 U/L (12-53) LFT Test 10/29/24 00:18 Alanine Aminotransferase (ALT) 14 U/L (7-40) Alkaline Phosphatase 82 U/L (46-116) Aspartate Amino Transferase (AST) 21 U/L (<34) Total Bilirubin 1.1 mg/dL (0.2-1.0) H Urinalysis Test 10/29/24 00:20 Urine Color Yellow (Yellow) Urine Clarity Clear (Clear) Urine pH 5.5 (5.0-9.0) Urine Specific [place] 1.037 (1.001-1.035) Urine Protein Trace (Negative) H Urine Ketones 1+ (Negative) H Urine Blood Negative /uL (Negative) Urine Nitrite Negative (Negative) Urine Bilirubin Negative (Negative) Urine Urobilinogen 2 mg/dL (Negative) H Urine Leukocyte Esterase Negative /uL (Negative) Urine RBC 1 /hpf (0 - 3) Urine Microscopic WBC 1 /HPF (0-3) Urine Squamous Epithelial Cells None seen /hpf (<5) Urine Bacteria None seen /hpf (None Seen) Urine Mucus Few (None Seen) Urine Glucose Normal mg/dL (Normal) Microbiology Microbiology Date/Time Source Procedure Growth Status 10/29/24 03:16 Stool Ordered Assessment/Plan Assessment/Plan 19-year-old male with no significant past medical history is here for two episodes of hematemesis 1. Two episodes of hematemesis he has been stable hemoglobin 2. Colitis -stool occult blood test -Protonix, GI consultation, IV antibiotics. Plan discussed with: Patient Date of Service: Oct 29, 2024 Billing Provider: MARY JANE GRANADOS MD Common Visit Codes: [id number] INP/OBS CARE(MOD) MARY JANE RGANADOS MD Oct 29, 2024 15:51
[2024-10-29 19:31] VITALS: PULSE 62; RESP 18; O2SAT 97
[2024-10-29] MEDS: MELATONIN 5 MG TAB PO ONE (21:29)
[2024-10-30 01:30] VITALS: BP 118/61; PULSE 53; RESP 16; TEMP 98.4; O2SAT 97
[2024-10-30] MEDS ORDERED: LORazepam 2MG/ML-1ML VIAL IV ONE (05:15)
[2024-10-30 05:23] LABS: Basophils # (auto) 0 10 ^3/uL (0-0.2); Basophils % (auto) 0.2 % (0.0-2.0); Eosinophils # (auto) 0 10 ^3/uL (0-0.8); Eosinophils % (auto) 0.9 % (0.0-7.0); Hematocrit 43.6 % (41.0-53.0); Hemoglobin 14.8 g/dL (13.5-17.5); Lymphocytes # (auto) 1.1 10 ^3/uL (0.4-5.4); Mean Corpuscular Hemoglobin 28.4 pg (28.0-32.0); Mean Corpuscular Hgb Conc. 33.9 g/dL (32.0-36.0); Mean Corpuscular Volume 83.7 fL (80.0-100.0); Monocytes # (auto) 0.3 10 ^3/uL (0-1.3); Monocytes % (auto) 8.1 % (0.0-12.0); Neutrophils # (auto) 2.7 10 ^3/uL (1.6-8.6); Neutrophils % (auto) 64.8 % (37.0-80.0); Nucleated Red Blood Cells % 0.2 %; Platelet Count (auto) 186 10^3/uL (140-450); Red Blood Cells 5.21 10^6/uL (4.5-5.90); Red Cell Distribution Width 13.1 % (11.8-14.3); White Blood Cell 4.2 10^3/uL (4.4-10.8)
[2024-10-30 06:00] VITALS: BP 140/78; PULSE 61; RESP 18; TEMP 98.4; O2SAT 100
[2024-10-30 06:06] LABS: Alanine Aminotransferase 12 U/L (7-40); Albumin 4.6 g/dL (3.2-4.8); Alkaline Phosphatase 62 U/L (46-116); Anion Gap 10 (5-15); Aspartate Aminotransferase 12 U/L (<34); BUN/Creatinine Ratio 6.7 (10.0-20.0); Blood Urea Nitrogen 7 mg/dL (9-23); Calcium 9.9 mg/dL (8.7-10.4); Carbon Dioxide 26 mmol/L (20-31); Chloride 109 mmol/L (98-107); Glucose 78 mg/dL (74-106); Potassium 4.5 mmol/L (3.5-5.1); Sodium 145 mmol/L (136-145); Total Protein 6.4 g/dL (5.7-8.2)
--- NOTE | 2024-10-30 13:14 | DVHDS2 ---
Discharge Summary Date of Admission Oct 29, 2024 at 03:12 Date of Discharge: Oct 30, 2024 Labs/Diagnostic Data: Laboratory Results Test 10/30/24 04:58 10/29/24 04:50 10/29/24 04:31 10/29/24 03:37 White Blood Count 4.2 10^3/uL (4.4-10.8) Red Blood Count 5.21 10^6/uL (4.5-5.90) Hemoglobin 14.8 g/dL (13.5-17.5) Hematocrit 43.6 % (41.0-53.0) Mean Corpuscular Volume 83.7 fL (80.0-100.0) Mean Corpuscular Hemoglobin 28.4 pg (28.0-32.0) Mean Corpuscular Hemoglobin Concent 33.9 g/dL (32.0-36.0) Red Cell Distribution Width 13.1 % (11.8-14.3) Platelet Count 186 10^3/uL (140-450) Mean Platelet Volume 7.8 fL (6.9-10.8) Neutrophils (%) (Auto) 64.8 % (37.0-80.0) Lymphocytes (%) (Auto) 26.0 % (10.0-50.0) Monocytes (%) (Auto) 8.1 % (0.0-12.0) Eosinophils (%) (Auto) 0.9 % (0.0-7.0) Basophils (%) (Auto) 0.2 % (0.0-2.0) Neutrophils # (Auto) 2.7 10 ^3/uL (1.6-8.6) Lymphocytes # (Auto) 1.1 10 ^3/uL (0.4-5.4) Monocytes # (Auto) 0.3 10 ^3/uL (0-1.3) Eosinophils # (Auto) 0 10 ^3/uL (0-0.8) Basophils # (Auto) 0 10 ^3/uL (0-0.2) Nucleated Red Blood Cells 0.2 % Sodium Level 145 mmol/L (136-145) Potassium Level 4.5 mmol/L (3.5-5.1) Chloride Level 109 mmol/L (98-107) Carbon Dioxide Level 26 mmol/L (20-31) Anion Gap 10 (5-15) Blood Urea Nitrogen 7 mg/dL (9-23) Creatinine 1.05 mg/dL (0.700-1.30) Glomerular Filtration Rate Calc 104 mL/min (>90) BUN/Creatinine Ratio 6.7 (10.0-20.0) Serum Glucose 78 mg/dL (74-106) Calcium Level 9.9 mg/dL (8.7-10.4) Total Bilirubin 1.0 mg/dL (0.2-1.0) Aspartate Amino Transferase (AST) 12 U/L (<34) Alanine Aminotransferase (ALT) 12 U/L (7-40) Alkaline Phosphatase 62 U/L (46-116) Total Protein 6.4 g/dL (5.7-8.2) Albumin 4.6 g/dL (3.2-4.8) Group A Streptococcus Rapid Negative Influenza Type A Antigen Negative (Negative) Influenza Type B Antigen Negative (Negative) SARS-CoV-2 Antigen (Rapid) Negative (NEGATIVE) Erythrocyte Sedimentation Rate 1 mm/hr (0-20) D-Dimer, Quantitative < 0.19 mg/L FEU (0.0-0.49) Lactic Acid Level 1.2 mmol/L (0.4-2.0) C-Reactive Protein High Sensitivity 0.04 mg/dL (<1.0) Lipase 33 U/L (12-53) Plasma/Serum Blood Alcohol < 3.0 mg/dL (<10) Test 10/29/24 00:28 10/29/24 00:20 10/29/24 00:18 HIV (1&2) Antibody Negative (Negative) Urine Color Yellow (Yellow) Urine Clarity Clear (Clear) Urine pH 5.5 (5.0-9.0) Urine Specific [place] 1.037 (1.001-1.035) Urine Protein Trace (Negative) Urine Ketones 1+ (Negative) Urine Blood Negative /uL (Negative) Urine Nitrite Negative (Negative) Urine Bilirubin Negative (Negative) Urine Urobilinogen 2 mg/dL (Negative) Urine Leukocyte Esterase Negative /uL (Negative) Urine RBC 1 /hpf (0 - 3) Urine Microscopic WBC 1 /HPF (0-3) Urine Squamous Epithelial Cells None seen /hpf (<5) Urine Bacteria None seen /hpf (None Seen) Urine Mucus Few (None Seen) Urine Glucose Normal mg/dL (Normal) Urine Opiates Screen Neg (NEGATIVE) Urine Fentanyl Screen Neg (NEGATIVE) Urine Barbiturates Screen Neg (NEGATIVE) Urine Phencyclidine Screen Neg (NEGATIVE) Urine Amphetamines Screen Neg (NEGATIVE) Urine Benzodiazepines Screen Neg (NEGATIVE) Urine Cocaine Screen Neg (NEGATIVE) Urine Cannabinoids Screen Pos (NEGATIVE) Prothrombin Time 10.9 sec (9.3-11.8) Prothrombin Time INR 1.03 (0.9-1.15) Activated Partial Thromboplast Time 29.7 SEC (24.5-34.5) Other Laboratory Tests 10/30/24 04:58 Brief Hx & Hospital Course: 19-year-old male with no significant past medical history is here for two episodes of hematemesis. Patient's hemoglobin is stable. Patient underwent CT abdomen and pelvis which shows evidence of colitis. GI was consulted patient was on IV antibiotics. Patient left against medical advice before completion of workup and treatment. Condition at Discharge: Undetermined Final Diagnosis/Problems List 19-year-old male with no significant past medical history is here for two episodes of hematemesis 1. Two episodes of hematemesis he has been stable hemoglobin 2. Colitis Discharge Disposition: AMA SNF Discharge Will this Physician continue t: No Discharge Statement: "Patient was advised to return to the ER or call 911 if any headaches, dizziness, shortness of breath, chest pain, abdominal pain, bleeding, fevers, or worsening of medical condition. Patient was counseled about treatment plan, medications, possible side effects, patientverbalized understanding. All questions were answered to the best of my ability. This discharge took greater then 30 minutes in planning, reviewing documentation, counseling the patient, and discussing with other team members." ASSESSMENT ASSESSMENT Assessment Date of Service: Oct 30, 2024 Billing Provider: MARY JANE GRANADOS MD Common Visit Codes: [id number] DISCH DAY >30min MARY JANE GRANADOS MD Oct 30, 2024 13:14
[2024-10-30] MEDS ORDERED: MELATONIN 5 MG TAB PO SCH (22:00)
[2024-11-01 19:06] LABS: Antimyeloperoxidase (MPO) Ab <0.2 units (0.0-0.9); Antiproteinase 3 (PR-3) Ab <0.2 units (0.0-0.9)
[2024-11-01 20:07] LABS: Cytoplasmic (C-ANCA) <1:20 titer (Neg:<1:20); Perinuclear (P-ANCA) <1:20 titer (Neg:<1:20)
== END 2024-10-30 07:21 | disposition left against medical advice (07) | DRG 248 ==
LOC: ER 23:54 → OVERFLOW 10-29 03:12
PROVIDERS: ATTEND Emergency Medicine
DX: A04.9 Bacterial intestinal infection, unspecified (principal); K92.0 Hematemesis; E80.6 Other disorders of bilirubin metabolism; Z20.822 Contact with and (suspected) exposure to COVID-19; E86.0 Dehydration; F12.90 Cannabis use, unspecified, uncomplicated; Z53.29 Procedure and treatment not carried out because of patient's decision for other reasons
CPT/HCPCS: 36415; 71045; 74176; 80053; 80307; 80320; 81001; 83520; 83605; 83690; 85014; 85018; 85025; 85379; 85610; 85652; 85730; 86141; 86256; 86703; 87040; 87070; 87426; 87804; 87880; 96361; 96374; 96375; G0378; J2405; J2470; J2543